=== PATIENT | female | born 1995 | race African-American/Black ===

== ENCOUNTER 2020-09-11 00:20 | Emergency (ER) | payer BC ==
[~2020-09-11] VITALS: Ht 149.9 cm; Wt 88.6 kg
[2020-09-11 00:29] VITALS: BP 146/89; Ht 149.9 cm; Wt 88.6 kg
[2020-09-11] MEDS ORDERED: NAPROSYN500 MG PO (01:05)
[2020-09-11] MEDS ORDERED: HYDROCODON-ACE1 EAC7 PO (01:05)
== END 2020-09-11 02:08 | disposition home or self-care (01) ==
LOC: D.ER 00:20
DX: S93.401A Sprain of unspecified ligament of right ankle, initial encounter (principal); X50.1XXA Overexertion from prolonged static or awkward postures, initial encounter; Y93.9 Activity, unspecified; Y92.9 Unspecified place or not applicable